=== PATIENT | male | born 1960 | race Caucasian/White ===

== ENCOUNTER 2025-06-30 08:44 | Emergency (ER) | payer OTHER, SELFPAY ==
--- NOTE | 2025-06-30 08:54 | EKG_ITS ---
[facility] Test Date: 2025-06-30 Pat Name: AURELIO FONTANA Department: Room: - Gender: Male Regional Facilities Specialist: : [id number] Requested By: Sebastián Bautista Order Number: [id number] Reading MD: Sebastián Bautista Measurements Intervals [place] Rate: 60 P: [place]: QRS: 231 QRSD: 196 T: 15 QT: 506 QTc: 506 Interpretive Statements ELECTRONIC VENTRICULAR PACEMAKER ABNORMAL RHYTHM ECG Compared to ECG 04/09/2022 22:40:45 No significant changes /store/S0/[id number]/[id number].pdf
[2025-06-30 08:55] VITALS: BP 174/104; PULSE 60; RESP 19; TEMP 37.1; O2SAT 98
--- NOTE | 2025-06-30 09:02 | XR_ITS ---
Examination: CT abdomen and pelvis without contrast. Coronal 3-D reconstructions. Sagittal 2-D reconstructions. Date and time of exam:June 30, 2025 1019 hours, comparison April 12, 2022 INDICATIONS: Generalized abdominal pain constipation beginning 2 weeks ago, CTDI: vol (mGy): 11.2 DLP: (mGycm): 652 Technique: Axial images of the abdomen have been obtained, 3 mm slice thickness Intravenous contrast material has not been administered. Low dose protocols were performed. One or more of the following dose reduction techniques were used; automated exposure control, adjustment of the mA and/or KV according to patient size, use of iterative reconstruction technique. Findings: No focal liver or splenic lesions Contracted gallbladder No pancreatic or adrenal mass Benign medial left renal cyst No renal or ureteral calculi, no hydronephrosis No pericecal inflammatory change Colonic diverticulosis, no diverticulitis No significant prostatomegaly Contracted urinary bladder Transpedicular lumbar fusion, extensive L2-L5 with satisfactory alignment IMPRESSION: No renal or ureteral calculi, no hydronephrosis No CT findings of appendicitis bowel obstruction or diverticulitis
--- NOTE | 2025-06-30 09:03 | XR_ITS ---
Examination: PA lateral chest 2 views TECHNIQUE: Upright PA lateral chest 2 views Date and time: June 30, 2025 0904 hours Comparison October 27, 2018 INDICATIONS: Chest pain shortness of breath today. FINDINGS: Normal heart size. Cardiac leads satisfactory position. No pneumonia or pulmonary edema Moderate osteopenia IMPRESSION: No pneumonia or pulmonary edema
--- NOTE | 2025-06-30 09:04 | PD.EDABDPN ---
ED Abdominal Pain RME/HPI General Chief Complaint: Abdominal Pain Stated complaint: Abdominal pain X 2 weeks, SOB Time seen by provider: 06/30/25 08:48 Arrival date/time: 06/30/25 08:44 64-year-old male with a history of hyperlipidemia, hypertension, CHF, A-fib, presents to the emergency room with a chief complaint of abdominal pain x 2 weeks and shortness of breath. Source: patient Mode of arrival: ambulatory Limitations: no limitations Related Data Home Medications ?Medication ?Instructions ?Recorded ?Confirmed furosemide 20 mg tablet (Lasix) 80 mg PO QAM DIURETIC #0 tabs 03/15/15 04/10/22 apixaban 5 mg tablet (Eliquis) 5 mg PO BID Blood Thinner ##0 04/13/15 04/10/22 atorvastatin 20 mg tablet 1 tab DAILY 04/10/22 04/10/22 carvedilol 25 mg tablet 1 tab BID 04/10/22 04/10/22 ibuprofen 800 mg tablet 1 tab TIDWMEAL 04/10/22 04/10/22 losartan 50 mg tablet 1 tab DAILY 04/10/22 04/10/22 tizanidine 4 mg tablet 1 tab HS 04/10/22 04/10/22 Previous Rx's ?Medication ?Instructions ?Recorded ciprofloxacin HCl 500 mg tablet 500 mg PO BID #20 tabs 04/13/22 metronidazole 375 mg capsule 500 mg (1.3333 x 375 mg) PO Q8H 04/13/22 (Flagyl) #30 caps ibuprofen 400 mg tablet 400 mg PO Q8H #20 tabs 08/12/22 Allergies Allergy/AdvReac Type Severity Reaction Status Date / Time No Known Allergies Allergy Verified 06/30/25 08:51 Review of Systems Review of Systems Systems Reviewed: All systems reviewed, normal except as documented Constitutional Constitutional: Reports system reviewed and no additional complaints, except as documented, Denies fatigue, Denies fever(s), Denies headache(s) and Denies weakness Eyes Eyes: Reports system reviewed and no additional complaints, except as documented, Denies blurry vision and Denies change in vision ENT Ears, Nose, Mouth, and Throat: Reports system reviewed and no additional complaints, except as documented, Denies otalgia, Denies headache(s), Denies nasal congestion, Denies throat swelling and Denies vertigo Cardiovascular Cardiovascular: Reports system reviewed and no additional complaints, except as documented, Denies chest pain, Denies dyspnea and Denies dyspnea on exertion Respiratory Respiratory: Reports system reviewed and no additional complaints, except as documented, Denies chest congestion, Denies cough, Denies dyspnea, Denies dyspnea on exertion and Denies wheezing Gastrointestinal Gastrointestinal: Reports system reviewed and no additional complaints, except as documented, Reports abdominal pain, Reports cramping, Denies nausea and Denies vomiting Genitourinary Genitourinary: Reports system reviewed and no additional complaints, except as documented, Denies dysuria and Denies hematuria Musculoskeletal Musculoskeletal: Reports system reviewed and no additional complaints, except as documented and Denies back pain Integumentary/Breasts Skin/Breast: Reports system reviewed and no additional complaints, except as documented and Denies wounds Neurologic Neurologic: Reports system reviewed and no additional complaints, except as documented, Denies confusion, Denies headache(s), Denies lack of coordination, Denies vertigo and Denies weakness Psychiatric Psychiatric: Reports system reviewed and no additional complaints, except as documented, Denies anxiety, Denies confusion, Denies depression, Denies paranoia, Denies suicidal ideation and Denies tactile hallucinations Endocrine Endocrine: Reports system reviewed and no additional complaints, except as documented and Denies fatigue Hematologic/Lymphatic Hematologic/Lymphatic: Reports system reviewed and no additional complaints, except as documented and Denies lymphadenopathy Allergic/Immunologic Allergic/Immunologic: Reports system reviewed and no additional complaints, except as documented, Denies throat swelling, Denies urticaria and Denies wheezing ED Exam General Limitations: Present no limitations General appearance: Present alert and in no apparent distress Head Head exam: Present atraumatic Eye Eye exam: Present normal appearance, PERRL and EOMI ENT ENT exam: Present normal exam, normal oropharynx and mucous membranes moist Neck Neck exam: Present normal inspection, full ROM and trachea midline Chest Chest inspection: Present normal inspection and symmetric chest wall rise Respiratory Respiratory exam: Present normal lung sounds bilaterally Cardiovascular Cardiovascular exam: Present regular rate, normal rhythm and normal heart sounds; Absent tachycardia Abdominal Exam Abdominal exam: Present soft, tenderness and normal bowel sounds; Absent distention, guarding, rebound or rigidity Extremities Exam Extremities exam: Present normal inspection and full ROM Back Exam Back exam: Present normal inspection and full ROM Neurological Exam Neurological exam: Present alert, oriented X3 and CN II-XII intact Psychiatric Psychiatric exam: Present normal affect and normal mood Skin Skin exam: Present warm, dry, intact and normal color Course Quality Measures none Orders Category Date Time Status EKG (ED ONLY) *Do not use* NOW Care 06/30/25 08:[address] abdomen pelvis wo con Stat Exams 06/30/25 09:02 Ordered EKG (ED Only) Stat Exams 06/30/25 08:54 Draft XR chest 2V Stat Exams 06/30/25 09:03 Ordered CBC Stat Lab 06/30/25 09:02 Ordered CMP [Comprehensive Metabolic Panel] Stat Lab 06/30/25 09:02 Ordered Lipase Stat Lab 06/30/25 09:02 Ordered UA [Urinalysis] Stat Lab 06/30/25 09:02 Ordered Urine Culture Stat Lab 06/30/25 09:02 Ordered mg Hyd/Al Hyd/Tara Susp [Maalox Susp] Med 06/30/25 09:02 Once 30 ml PO X1 ONE Vital Signs Vital signs: Vital Signs Temperature 98.7 F 06/30/25 08:55 Pulse Rate 60 06/30/25 08:55 Respiratory Rate 19 06/30/25 08:55 Blood Pressure 174/104 H 06/30/25 08:55 Pulse Oximetry (%) 98 06/30/25 08:55 Oxygen Delivery Method Room Air 06/30/25 08:55 98% on room air Abdominal Pain MDM MDM Narrative MDM Narrative:: 64-year-old male with a history of hyperlipidemia, hypertension, CHF, A-fib, presents to the emergency room with a chief complaint of abdominal pain x 2 weeks and shortness of breath. Patient data External records reviewed:: [facility] previous records Clinical information provided by:: patient Social determinants that could affect healthcare access:: none Patient has the following chronic illnesses:: CHF, hypertension, hyperlipidemia, A-fib How is presenting disease/condition affected by chronic disease/condition?: exacerbated by Evaluation data The following diagnostics were reviewed and interpreted by me:: lab results and radiology exam(s) Lab and/or radiology exams considered but not ordered:: Labs and radiology exams considered and ordered Interpretation Summary: Chest x-ray- CT abdomen and pelvis Medications / Prescriptions Medications or Prescriptions considered but not ordered:: Medication given Medication administrations:: Medication Administration History Al Hydrox/Mg Hydrox/Simethicone (Mg Hyd/Al Hyd/Tara (Maalox Reg) Susp 30 Ml Udc) 30 ml PO X1 ONE Stop: 06/30/25 09:03 Medication given Consultations Consultation(s) initiated? (list below): No Diagnosis Differential diagnosis abdominal pain: abdominal pain, constipation, diverticulitis and gastroenteritis Admission Indicated Admission indicated?: not indicated Admission Request Was there a request for admission?: No Disposition Plan Disposition Plan: Discharge Discharge Attestation Discharge Attestation: The patient and all family members were given an opportunity to ask questions and understood the discharge instructions. Discharge instructions specifically effects, indications for sooner follow up or return to the emergency department, and the expected course of current diagnosis. Patient condition: Stable Discharge Plan Prescriptions/Referrals Prescriptions/Med Rec: No Action furosemide [Lasix] 20 MG tablet 80 mg PO QAM Qty: 0 Eliquis 5 MG tablet 5 mg PO BID Qty: 0 losartan 50 mg tablet 1 tab DAILY Patient Comments: take 1 tablet by mouth once daily carvedilol 25 mg tablet 1 tab BID Patient Comments: take 1 tablet by mouth twice a day tizanidine 4 mg tablet 1 tab HS ibuprofen 800 mg tablet 1 tab TIDWMEAL atorvastatin 20 mg tablet 1 tab DAILY Patient Comments: take 1 tablet by mouth once daily metronidazole [Flagyl] 375 mg capsule 500 mg PO Q8H Qty: 30 0RF ciprofloxacin HCl 500 mg tablet 500 mg PO BID Qty: 20 0RF ibuprofen 400 mg tablet 400 mg PO Q8H Qty: 20 0RF Patient/Caregiver Discharge Instructions Print Language: Sinhala
[2025-06-30] MEDS: MG HYD/AL HYD/SIME (Maalox Reg) SUSP 30 ML UDC PO (09:15)
[2025-06-30 10:15] LABS: Basophils # (Auto) 0.1 Thou/mm3 (0.0-0.2); Basophils % (Auto) 1 % (0-2.5); Eosinophils # (Auto) 0.1 Thou/mm3 (0.0-0.5); Eosinophils % (Auto) 1 % (0-10); Hematocrit 45.2 % (41.0-53.0); Hemoglobin 15.6 g/dL (13.5-16.0); Immature Granulocytes Auto 0.02 Thou/mm3 (0.00-0.00); Lymphocytes # (Auto) 1.8 Thou/mm3 (1.0-4.8); Lymphocytes % (Auto) 26 % (10-50); Mean Corpuscular HGB Conc 34.5 g/dl (31.0-37.0); Mean Corpuscular Hemoglobin 32.3 pg (25.0-35.0); Mean Corpuscular Volume 94 fL (80-100); Monocytes # (Auto) 0.4 Thou/mm3 (0.0-0.8); Monocytes % (Auto) 6 % (0-12); Neutrophils # (Auto) 4.5 Thou/mm3 (1.8-7.7); Neutrophils % (Auto) 66 % (37-80); Nucleated Red Blood Cell # 0.00 Thou/mm3 (0.00-0.00); Nucleated Red Blood Cell % 0 /100 WBC (0); Platelet Count 221 Thou/mm3 (140-440); RDW Standard Deviation 44.2 fL (35.1-43.9); Red Blood Count 4.83 Miln/mm3 (4.50-5.90); White Blood Count 6.9 Thou/mm3 (3.8-10.6)
[2025-06-30 10:18] LABS: Collection Type, Urine Clean Catch
[2025-06-30 10:28] LABS: Bilirubin,Urine Negative (Negative); Blood,Urine Negative (Negative); Clarity,Urine Clear (Clear/Hazy); Color,Urine Yellow (Lt Yel-Yel); Glucose, Urine Negative (Negative); Ketones,Urine Negative (Negative); Leukocyte Esterase,Urine Negative (Negative); Nitrite,Urine Negative (Negative); PH,Urine 7.5 (5.0-7.0); Protein,Urine Trace (Neg - Trace); RBC,Urine 4 /hpf (0-3); Specific Gravity,Urine 1.019 (1.001-1.035); Squamous Epithelial Cell,Urine < 1 /hpf (0-5); Urobilinogen,Urine Negative mg/dL (0.0-1.0); WBC,Urine 1 /hpf (0-5)
[2025-06-30 10:35] LABS: B-Type Natriuretic Peptide 66 pg/mL (0-100)
[2025-06-30 10:38] LABS: Alanine Aminotransferase 29 U/L (10-49); Albumin, Serum 4.3 gm/dL (3.4-4.8); Albumin/Globulin Ratio 1.6 (1.2-2.2); Alkaline Phosphatase 81 U/L (46-116); Anion Gap 7 (7-16); Aspartate Amino Transferase 31 U/L (0-34); BUN/Creatinine Ratio 7 Ratio (12-20); Bilirubin,Total 1.0 mg/dL (0.3-1.2); Blood Urea Nitrogen 9 mg/dL (9-23); Calcium 9.5 mg/dL (8.3-10.6); Calcium (Corrected) 9.5 mg/dL (8.5-10.1); Carbon Dioxide 29.0 mMol/L (20.0-31.0); Chloride 107 mMol/L (98-107); Creatinine (Component) 1.3 mg/dL (0.6-1.3); Globulin 2.7 gm/dL (2.3-3.5); Glucose 105 mg/dL (74-106); Lipase 34 U/L (12-53); Osmolality,Calculated 283 (275-295); Potassium 4.1 mMol/L (3.4-5.1); Sodium 143 mMol/L (136-145); Total Protein 7.0 gm/dL (5.7-8.2); eGFR > 60 See Note
[2025-06-30 10:57] LABS: Troponin I 0.216 ng/mL (0.0-0.045)
--- NOTE | 2025-06-30 11:01 | PD.EDRME ---
Rapid Medical Screening Exam RME Arrival date/time: 06/30/25 08:44 64-year-old male with a history of hyperlipidemia, hypertension, CHF, A-fib, presents to the emergency room with a chief complaint of abdominal pain x 2 weeks and shortness of breath. I have greeted and performed a focused initial assessment of this patient. A comprehensive ED assessment and evaluation of the patient, analysis of all test results, and completion of the medical decision making process will be conducted by additional ED providers. Chief Complaint: Abdominal Pain Time Seen by Provider: 06/30/25 08:48 Vital signs: Vital Signs Temperature 98.7 F 06/30/25 08:55 Pulse Rate 60 06/30/25 08:55 Respiratory Rate 19 06/30/25 08:55 Blood Pressure 174/104 H 06/30/25 08:55 Pulse Oximetry (%) 98 06/30/25 08:55 Oxygen Delivery Method Room Air 06/30/25 08:55 Vital signs reviewed by provider: Yes
[2025-06-30 11:43] VITALS: BP 180/118; PULSE 61; RESP 19; TEMP 36.9; O2SAT 96
--- NOTE | 2025-06-30 12:03 | EDNOTE_ITS ---
ED General RME/HPI General Chief complaint: Abdominal Pain Stated complaint: Abdominal pain X 2 weeks, SOB Time Seen by Provider: 06/30/25 08:48 Arrival date/time: 06/30/25 08:44 CC: Abdominal pain HPI ongoing for the past 2 weeks patient describes as bandlike pain in the mid abdomen. Worse after meals when laying down at night constant in nature currently a 7 on a 10 scale but describes it as aching . Patient has a pacer on blood thinners and seen by refrigeration lead in [place]. Denies chest pain shortness of breath or difficulty breathing no other complaints at this time is awake alert oriented nontoxic-appearing. RME / HPI RME / HPI narrative: 06/30/25 08:44 64-year-old male with a history of hyperlipidemia, hypertension, CHF, A-fib, presents to the emergency room with a chief complaint of abdominal pain x 2 weeks and shortness of breath. I have greeted and performed a focused initial assessment of this patient. A comprehensive ED assessment and evaluation of the patient, analysis of all test results, and completion of the medical decision making process will be conducted by additional ED providers. Related Data Home Medications ?Medication ?Instructions ?Recorded ?Confirmed furosemide 20 mg tablet (Lasix) 80 mg PO QAM DIURETIC #0 tabs 03/15/15 04/10/22 apixaban 5 mg tablet (Eliquis) 5 mg PO BID Blood Thinn er ##0 04/13/15 04/10/22 atorvastatin 20 mg tablet 1 tab DAILY 04/10/22 2 carvedilol 25 mg tablet 1 tab BID 04/10/22 04/10/22 ibuprofen 800 mg tablet 1 tab TIDWMEAL 04/10/2203/21 losartan 50 mg tablet 1 tab DAILY 04/10/22 2 tizanidine 4 mg tablet 1 tab HS 04/10/22 04/10/22 Previous Rx's ?Medication ?Instructions ?Recorded ciprofloxacin HCl 500 mg tablet 500 mg PO BID #20 tabs 04/13/22 metronidazole 375 mg capsule 500 mg (1.3333 x 375 mg) PO Q8H 04/13/22 (Flagyl) #30 caps ibuprofen 400 mg tablet 400 mg PO Q8H #20 tabs 08/12 pantoprazole 20 mg tablet,delayed 20 mg PO QDAY #30 ta bs 06/30/25 release (Protonix) Allergies Allergy/AdvReac Type Severity Reaction Status Date / Time No Known Allergies Allergy Verified 06/30/25 08:51 Review of Systems Review of Systems Narrative Review of Systems: GEN: No fever, no chills, no weight loss EYES: No discharge, no visual changes, no pain HEENT: No ear pain, no congestion, no sore throat PULM: No shortness of breath, no cough, no congestion CV: No chest pain, no dyspnea on exertion, no palpitations GI: No nausea, no vomiting, no diarrhea, + pain, no constipation : No frequency, no urgency, no dysuria MUSC/SKEL: No joint pain, no back pain SKIN: No rash PSYCH: No hallucinations, no depression HEME/LYMPH: No easy bleeding or bruising tendencies NEURO: No weakness, no headache Past Medical History Past Medical History CARDIAC: Positive Cardiac Disorders, Myocardial Infarction, Atrial Fibrillation, Coronary Artery Disease, Congestive Heart Failure, Cardiomyopathy and Hypertension RESPIRATORY: Negative Chronic Obstructive Pulmonary Disease (COPD) or Asthma GASTROINTESTINAL: Positive Obesity GENITOURINARY: Negative Renal Disease MUSCULOSKELETAL: Positive Degenerative Disk Disease ENDOCRINE: Negative Diabetes Mellitus Type 1 or Diabetes Mellitus Type 2 HEMATOLOGIC: Negative Sickle Cell Disease Family History FAMILY HISTORY: Negative Family Cardiac Disorders Surgical History SURGICAL: Positive Pacemaker Social History SMOKING STATUS: Current every day smoker SECOND HAND EXPOSURE: No ED Exam Narrative Physical exam: [General: Obese not in any acute distress Head normocephalic HEENT: Eyes pupils are PERRLA EOMs are intact mouth pink moist membranes uvula is midline swallow symmetrical within acceptable limits Neck is supple nontender, no JVD no edema Chest equal chest rise nontender to palpation Respiratory: Clear to auscultation no wheezes crackles or rubs CV: Rate rhythm is regular no murmurs rubs or clicks Abdomen is distended secondary to body habitus soft, mild tenderness throughout, no specific tenderness in the epigastrium or right upper quadrant. No masses positive bowel sounds all 4 quadrants Back: No CVA tenderness no spinous process tenderness from cervical spine thoracic and lumbar spine Skin: Intact no petechiae rash induration ulceration or crepitus Extremities: Moving all extremity against resistance cap refill less than 2 seconds neurosensory intact Neuro: Awake alert oriented x3 Glascow coma 15 no focal deficits] Course Quality Measures none Orders Category Date Time Status EKG (ED ONLY) *Do not use* NOW Care 06/30/25 08:54 Completed Occult Blood,Stool (Nursing) ONCE Care 06/30/25 12:[address] abdomen pelvis wo con Stat Exams 06/30/25 09:02 Completed EKG (ED Only) Stat Exams 06/30/25 08:54 Draft XR chest 2V Stat Exams 06/30/25 09:03 Completed BNP [B-Type Natriuretic Peptide] Stat Lab 06/30/25 09:48 Completed CBC Stat Lab 06/30/25 09:48 Completed CMP [Comprehensive Metabolic Panel] Stat Lab 06/30/25 09:48 Completed Lipase Stat Lab 06/30/25 09:48 Completed Occult Blood, Stool (LAB) Stat Lab 06/30/25 12:00 Completed Troponin I Stat Lab 06/30/25 09:48 Completed UA [Urinalysis] Stat Lab 06/30/25 10:08 Completed Urine Culture Stat Lab 06/30/25 09:02 Received Pantoprazole [Protonix] Med 06/30/25 12:11 Discontinued 40 mg PO X1 ONE hydrALAZINE HCL [Apresoline] Med 06/30/25 12:47 Discontinued 25 mg PO X1 ONE mg Hyd/Al Hyd/Tara Susp [Maalox Susp] Med 06/30/25 09:02 Discontinued 30 ml PO X1 ONE Vital Signs Vital signs: Vital Signs Temperature 98.7 F 06/30/25 08:55 Pulse Rate 60 06/30/25 08:55 Respiratory Rate 19 06/30/25 08:55 Blood Pressure 174/104 H 06/30/25 08:55 Pulse Oximetry (%) 98 06/30/25 08:55 Oxygen Delivery Method Room Air 06/30/25 08:55 Discharge Plan Plan Patient Disposition: HOME (Self Care) Patient condition on transfer: Stable Prescriptions/Referrals Prescriptions/Med Rec: New pantoprazole [Protonix] 20 mg tablet,delayed release (DR/EC) 20 mg PO QDAY Qty: 30 0RF No Action furosemide [Lasix] 20 MG tablet 80 mg PO QAM Qty: 0 Eliquis 5 MG tablet 5 mg PO BID Qty: 0 losartan 50 mg tablet 1 tab DAILY Patient Comments: take 1 tablet by mouth once daily carvedilol 25 mg tablet 1 tab BID Patient Comments: take 1 tablet by mouth twice a day tizanidine 4 mg tablet 1 tab HS ibuprofen 800 mg tablet 1 tab TIDWMEAL atorvastatin 20 mg tablet 1 tab DAILY Patient Comments: take 1 tablet by mouth once daily metronidazole [Flagyl] 375 mg capsule 500 mg PO Q8H Qty: 30 0RF ciprofloxacin HCl 500 mg tablet 500 mg PO BID Qty: 20 0RF ibuprofen 400 mg tablet 400 mg PO Q8H Qty: 20 0RF Referrals: Zeyad Holt [Primary Care Provider] - In 1 week Problem List Clinical Impression: Abdominal pain Patient/Caregiver Discharge Instructions Other Activity Instructions:: Stick to a bland diet get take the medication as prescribed if there is a worsening of symptoms return the emergency room medially for further evaluation. Education Materials: Abdominal Pain, ED Diet, Villalba (Adult) Print Language: Czech Stand Alone Forms: Premise Award Info., Work/School Release, Patient Portal Info Letter PA/[employer]ER [employer] TECHNICIAN Supervising Physician PA/[employer] TECHNICIAN Supervising Physician: Fernie Morgan ENP, MD Attestation MD Attestation The patient was seen by the midlevel practitioner. I, the co-signing physician, was present during the entire ER visit. While I did not physically examine the patient, I was available for consultation as needed. I agree with the plan and documentation. MDM Clinical Information Provided by patient Medical Records Reviewed [facility] Chronic Illness/Social Conditions which may negatively complicate care or outcome(s)-explain: CHF/CAD/Cardiac illness EKG EKG Interpretation narrative: EKG performed at 0 857 shows a ventricular to 60 QRS of 196 QTc of 506 electronically paced rhythm. When compared to an old EKG of March 2022 there are no significant changes. Lab Interpretation Lab(s) interpretation(s): CBC shows no acute leukocytosis anemia thrombocytopenia CMP shows no significant electrolyte imbalances renal impairment transaminitis or T. bili elevation Troponin at 0.216 note: Review of other troponins in the past have been elevated not quite as high as this however. BNP at 66 Lipase 34 Urine pH is 7.5 no other indicators of urinary tract infection or gross abnormalities. Imaging Provider imaging interpretation(s): Chest x-ray as interpreted by me read by radiology is negative for any acute finding requires emergent need intervention CT of the abdomen pelvis shows no acute findings such as diverticulitis ileus or appendicitis as interpreted by me read by radiology. Medication Administration(s) Medication Administration History Discontinued Medications Al Hydrox/Mg Hydrox/Simethicone (Mg Hyd/Al Hyd/Tara (Maalox Reg) Susp 30 Ml Udc) 30 ml PO X1 ONE Stop: 06/30/25 09:03 Last Admin: 06/30/25 09:15 Dose: 30 ml Documented By: Hydralazine HCl (Hydralazine Hcl 25 Mg Tablet) 25 mg PO X1 ONE Stop: 06/30/25 12:48 Last Admin: 06/30/25 12:55 Dose: 25 mg Documented By: DB Pantoprazole Sodium (Pantoprazole 40 Mg Tablet) 40 mg PO X1 ONE Stop: 06/30/25 12:12 Last Admin: 06/30/25 12:43 Dose: 40 mg Documented By: JOSE RAMON Diagnosis Differential diagnosis: Diverticulitis ileus appendicitis Differential dx and/or dx ruled out: Differentials are diarrhea ruled out suspect the patient has gastritis, will discharge the patient home on Protonix to follow-up with his primary care provider. Dispositon Disposition: Discharge Home
[2025-06-30 12:17] LABS: OBS Card Lot # 0124; OBS Developer Expiration Date 09/09/25; OBS Developer Lot # 23003; OBS Performed By BOTED; OBS QC OK? Yes; Occult Blood, Stool Negative (Negative)
[2025-06-30] MEDS: PANTOPRAZOLE 40 MG TABLET PO (12:43)
[2025-06-30 12:55] VITALS: BP 194/114; PULSE 68
[2025-06-30 12:56] VITALS: BP 194/114; PULSE 68; RESP 18; TEMP 36.6; O2SAT 99
== END 2025-06-30 12:56 | disposition home or self-care (01) ==
PROVIDERS: Nurse Practitioner Family; Registered Nurse General Practice; Emergency Provider Family Medicine; PCP Family Medicine
DX: R10.9 Unspecified abdominal pain (principal); R06.02 Shortness of breath; E78.5 Hyperlipidemia, unspecified; I11.0 Hypertensive heart disease with heart failure; I50.9 Heart failure, unspecified; I48.91 Unspecified atrial fibrillation; F17.290 Nicotine dependence, other tobacco product, uncomplicated; E66.9 Obesity, unspecified; Z68.32 Body mass index [BMI] 32.0-32.9, adult; Z79.01 Long term (current) use of anticoagulants; Z79.899 Other long term (current) drug therapy
CPT/HCPCS: 36415; 71046; 74176; 80053; 81001; 82270; 83690; 83880; 84484; 85025; 87086; 93005; 99284; A9270

== ENCOUNTER → 2025-07-30 | Outpatient (CLI) | payer OTHER, SELFPAY ==
[2025-07-30] VITALS (7 sets, daily range): PULSE 78–80; RESP 16–20; O2SAT 95–98
--- NOTE | 2025-07-30 08:30 | XR_ITS ---
Examination: MRI lumbar spine without contrast Date and time of exam: July 30, 2025 0907 hours Comparison October 03, 2023 INDICATIONS: Low back pain 5 years, worse this week after falling, pain radiating down the left leg Technique: Multiple MRI axial and sagittal sections lumbar spine. Sagittal T2-weighted images, TR 3500, TE 118 T1 weighted transverse sections, TR 688 T8.5, T2-weighted sagittal sections T1 weighted sagittal sections TR 621, TE 30 T2 axial sections, TR 4, 190, TE 84. Findings: Adequate alignment lumbar vertebral bodies on the lateral view Lumbar stabilization L2-L5 with stable alignment Diffuse lumbar disc narrowing No spondylolisthesis No lumbar fracture L5-S1 no disc protrusion L4-L5 no disc protrusion L3-L4 no disc protrusion L2-L3 no disc protrusion L1-L2 4 mm central lumbar disc bulge IMPRESSION: Satisfactory and stable alignment lumbar fusion L2-L5 L1-L2 4 mm central lumbar disc bulge
--- NOTE | 2025-07-30 09:29 | PC.NURSE ---
MRI STARTED AT THIS TIME
--- NOTE | 2025-07-30 09:53 | PC.NURSE ---
MRI Completed at this time. Patient has no signs of distress.
== END | disposition home or self-care (01) ==
LOC: SIRX 08:30
PROVIDERS: PCP Family Medicine; Referring Provider Student in an Organized Health Care Education/Training Program; Visit Provider Student in an Organized Health Care Education/Training Program
DX: M43.26 Fusion of spine, lumbar region (principal); M51.360 Other intervertebral disc degeneration, lumbar region with discogenic back pain only
CPT/HCPCS: 72148